=== PATIENT | male | born 1990 | race Two or more races ===

== ENCOUNTER 2021-05-23 14:46 | Emergency (ER) | payer SELFPAY ==
[~2021-05-23] VITALS: Ht 188 cm; Wt 136.1 kg
[2021-05-23 15:01] VITALS: BP 130/74
== END 2021-05-23 15:54 | disposition left against medical advice (07) ==
LOC: ER 14:46
DX: R06.02 Shortness of breath (principal); R11.0 Nausea; J02.9 Acute pharyngitis, unspecified; Z53.21 Procedure and treatment not carried out due to patient leaving prior to being seen by health care provider

== ENCOUNTER 2022-07-21 16:39 | Emergency (ER) | payer MEDICAID, OTHER ==
[~2022-07-21] VITALS: Ht 188 cm; Wt 132.6 kg
[2022-07-21 17:17] LABS: Basophils # (auto) 0 10 ^3/uL (0-0.2); Basophils % (auto) 0.5 % (0.0-2.0); Eosinophils # (auto) 0.1 10 ^3/uL (0-0.8); Eosinophils % (auto) 0.9 % (0.0-7.0); Hematocrit 47.7 % (41.0-53.0); Hemoglobin 16.8 g/dL (13.5-17.5); Lymphocytes # (auto) 1.8 10 ^3/uL (0.4-5.4); Mean Corpuscular Hemoglobin 30.3 pg (28.0-32.0); Mean Corpuscular Hgb Conc. 35.3 g/dL (32.0-36.0); Mean Corpuscular Volume 85.8 fL (80.0-100.0); Monocytes # (auto) 0.4 10 ^3/uL (0-1.3); Monocytes % (auto) 6.6 % (0.0-12.0); Neutrophils # (auto) 4.2 10 ^3/uL (1.6-8.6); Nucleated Red Blood Cells % 0.1 %; Red Blood Cells 5.57 10^6/uL (4.5-5.90); Red Cell Distribution Width 12.8 % (11.8-14.3); White Blood Cell 6.5 10^3/uL (4.4-10.8)
[2022-07-21 17:41] LABS: Albumin 4.7 g/dL (3.4-5.0); BUN/Creatinine Ratio 17.1; Bilirubin, Total 1.1 mg/dL (0.2-1.0); Calcium 9.2 mg/dL (8.5-10.1); Potassium 4.1 mmol/L (3.5-5.1); Total Protein 7.9 g/dL (6.4-8.2)
[2022-07-21] MEDS ORDERED: BACL10TA PO (20:43)
[2022-07-21 21:12] VITALS: BP 136/95
== END 2022-07-21 21:12 | disposition home or self-care (01) ==
LOC: ER 16:39
DX: R07.89 Other chest pain (principal); J45.909 Unspecified asthma, uncomplicated
CPT/HCPCS: 36415; 71045; 80053; 84484; 85025; 93005

== ENCOUNTER → 2022-10-12 | Outpatient (CLI) | payer MEDICAID ==
[~2022-10-12] MED LIST: BACL10TA PO
== END | disposition home or self-care (01) ==
LOC: Rad HDHVI 08:53
PROVIDERS: ATTEND Internal Medicine Cardiovascular Disease
DX: R07.9 Chest pain, unspecified (principal); I10 Essential (primary) hypertension
CPT/HCPCS: 93306

== ENCOUNTER → 2022-10-14 | Outpatient (CLI) | payer MEDICAID ==
[~2022-10-14] MED LIST changes: +IOHEXOL 350 MG/ML 100ML IJ ONE
[2022-10-14 09:11] VITALS: BP 145/100
[2022-10-14 09:26] VITALS: BP 134/90
== END | disposition home or self-care (01) ==
LOC: Rad HDHVI 08:56
PROVIDERS: ATTEND Internal Medicine Cardiovascular Disease
DX: R07.9 Chest pain, unspecified (principal); M94.0 Chondrocostal junction syndrome [Tietze]
CPT/HCPCS: 71275; G0463; Q9967

== ENCOUNTER → 2022-10-28 | Outpatient (CLI) | payer MEDICAID ==
[~2022-10-28] VITALS: Ht 188 cm; Wt 131.5 kg
[~2022-10-28] MED LIST changes: -IOHEXOL 350 MG/ML 100ML IJ ONE
== END | disposition home or self-care (01) ==
LOC: Rad HDHVI 13:31
PROVIDERS: ATTEND Internal Medicine Cardiovascular Disease
DX: I10 Essential (primary) hypertension (principal); R07.89 Other chest pain; M94.0 Chondrocostal junction syndrome [Tietze]
CPT/HCPCS: 78452; 93017; 96374; A9500